=== PATIENT | female | born 1990 | race Asian ===

== ENCOUNTER 2017-03-09 21:08 | Emergency (ER) | payer OTHER ==
[~2017-03-09] VITALS: Ht 160 cm; Wt 62.0 kg
[2017-03-09 21:11] VITALS: BP 107/53
== END 2017-03-10 04:15 | disposition left against medical advice (07) ==
LOC: ER 21:13
DX: Z53.21 Procedure and treatment not carried out due to patient leaving prior to being seen by health care provider (principal)